=== PATIENT | male | born 2000 | race African-American/Black ===

== ENCOUNTER 2020-06-23 02:48 | Emergency (ER) | payer SELFPAY ==
[~2020-06-23] VITALS: Ht 172.7 cm; Wt 63.6 kg
[2020-06-23 03:15] VITALS: BP 131/87
--- NOTE | 2020-06-23 03:28 | PHYS DOC ---
General Adult EDM: Chief Complaint: FINGER INJURY HPI: HPI: The history was obtained from the patient. Patient is a 20-year-old male with no reported PMH who presents with a chief complaint of pain to the left first digit. Patient is right-handed. He states he experienced a laceration against a garage door part yesterday. He did go to an urgent care facility had a laceration repaired. He states he had increased pain and swelling to the first digit. He denies any new trauma or injury. Denies any purulent drainage. Denies any redness over the area. Denies any fevers. Denies any wrist pain. States he has tried to ibuprofen tablets without relief. States his greatest concern is being reevaluated as work encouraged him to be seen again. No other complaints. Review of Systems: Review of Systems: Constitutional: Denies fever or chills. [] Eyes: Denies change in visual acuity. [] HENT: Denies nasal congestion or sore throat. [] Respiratory: Denies cough or shortness of breath. [] Cardiovascular: Denies chest pain or edema. [] GI: Denies abdominal pain, nausea, vomiting, bloody stools or diarrhea. [] : Denies dysuria. [] Musculoskeletal: Positive for finger pain Integument: Denies rash. [] Neurologic: Denies headache, focal weakness or sensory changes. [] Endocrine: Denies polyuria or polydipsia. [] Lymphatic: Denies swollen glands. [] Psychiatric: Denies depression or anxiety. [] Heart Score: Risk Factors: Risk Factors: DM, Current or recent (<one month) smoker, HTN, HLP, family history of CAD, obesity. Risk Scores: Score 0 - 3: 2.5% MACE over next 6 weeks - Discharge Home Score 4 - 6: 20.3% MACE over next 6 weeks - Admit for Clinical Observation Score 7 - 10: 72.7% MACE over next 6 weeks - Early Invasive Strategies Physical Exam: PE: Constitutional: Well developed, well nourished, no acute distress, non-toxic appearance. [] HENT: Normocephalic, atraumatic, bilateral external ears normal, oropharynx moist, no oral exudates, nose normal. [] Eyes: PERRLA, EOMI, conjunctiva normal, no discharge. [] Neck: Normal range of motion, no tenderness, supple, no stridor. [] Cardiovascular:Heart rate regular rhythm, no murmur [] Lungs & Thorax: Bilateral breath sounds clear to auscultation [] Abdomen: soft, no tenderness, no masses, no pulsatile masses. [] Skin: Warm, dry, no erythema, no rash. [] Back: No tenderness, no CVA tenderness. [] Extremities: 1 cm repaired laceration noted to the dorsal aspect of the first digit overlying the PIP joint. Mild swelling noted. No purulent drainage, induration, or erythema appreciated. Sensation intact in all nerve distribu tions. Full flexion and extension of the digit actively. Neurologic: Alert and oriented X 3, normal motor function, normal sensory function, no focal deficits noted. [] Psychologic: Affect normal, judgement normal, mood normal. [] EKG: EKG: [] Radiology/Procedures: Radiology/Procedures: [facility] [address] [place], [place] [id number] IMAGING REPORT Signed PATIENT: GRAHAM DE LA CRUZ ACCOUNT: [id number] : 2000 LOCATION: ER AGE: 20 SEX: M EXAM STATUS: DEP ER ORD. PHYSICIAN: TATA HONG DO REASON: pain and recent lac to dorsum of 1st digit PROCEDURE: HAND LEFT 3V LEFT HAND, VIEWS 3 Indication: Reason: pain and recent laceration to dorsum of 1st digit / Spl. Instructions: / History: Findings: There is no acute fracture or dislocation. Bony articulations are normal. There is no bony erosion. Mineralization is normal. There is no radiopaque foreign body. Mild soft tissue swelling of the second finger most apparent at the PIP joint. IMPRESSION: No acute bone abnormality. Electronically signed by: Daniel Plascencia MD (06/23/2020 4:25 AM) [facility] DICTATED and SIGNED BY: DANIEL PLASCENCIA MD DATE: 06/23/20 0425 [] Course & Med Decision Making: Course & Med Decision Making Pertinent Labs and Imaging studies reviewed. (See chart for details) [] Patient is a well-appearing right-handed 20-year-old male who presents with chief complaint of left first digit pain and swelling status post laceration injury and repair yesterday. Plain film imaging reveals no acute osseous abnormality. Patient's finger was placed in a splint in position of comfort. I do not feel antibiotics indicated there are no clinical signs of infection. Return precautions discussed and understood. Instructed to follow-up with his primary care physician in the next 2 to 3 days. Stable for discharge. Dragon Disclaimer: Dragon Disclaimer: This electronic medical record was generated, in whole or in part, using a voice recognition dictation system. Departure Departure Impression: Primary Impression: Laceration of finger of left hand Qualified Codes: S61.211D - Laceration without foreign body of left index finger without damage to nail, subsequent encounter Disposition: 01 HOME, SELF-CARE Condition: STABLE Referrals: NO PCP (PCP) Patient Instructions: Laceration Care, Adult Additional Instructions: 4 to 5 days for suture removal. Please follow-up with your primary care physician in the next [facility] [address] [place] [address] [facility] [address] [place] [address] [facility] [address] [facility] [place] [address] [facility] [address] [place] [address] [facility] [address] [place] [address] [facility] [address] [place] [address] [facility] [address] [place] [address] [facility] [address] [place] [address] [facility] [address] [place] [address] [facility] [address] [place] [address] Justicifation of Admission Dx: Justifications for Admission: Justification of Admission Dx: N/A TATA HONG DO Jun 23, 2020 03:28
--- NOTE | 2020-06-23 04:29 | RAD ---
LEFT HAND, VIEWS 3 Indication: Reason: pain and recent laceration to dorsum of 1st digit / Spl. Instructions: / History: Findings: There is no acute fracture or dislocation. Bony articulations are normal. There is no bony erosion. Mineralization is normal. There is no radiopaque foreign body. Mild soft tissue swelling of the second finger most apparent at the PIP joint. IMPRESSION: No acute bone abnormality. Electronically signed by: Daniel Plascencia MD (06/23/2020 4:25 AM) [facility]
[2020-06-23] MEDS ORDERED: ACETAMINOPHEN 500 MG TABLET PO ONE (04:30)
== END 2020-06-23 04:17 | disposition home or self-care (01) ==
LOC: ER 02:48
DX: S61.211D Laceration without foreign body of left index finger without damage to nail, subsequent encounter (principal); Y28.8XXD Contact with other sharp object, undetermined intent, subsequent encounter
CPT/HCPCS: 29130; 73130; 99283